=== PATIENT | male | born 1950 | race Caucasian/White ===

== ENCOUNTER 2017-03-24 13:56 | Emergency (ER) | payer OTHER ==
[~2017-03-24] VITALS: Ht 167.6 cm; Wt 112.0 kg
[2017-03-24 14:54] VITALS: BP 200/106
[2017-03-25] MEDS ORDERED: NAPROXEN500 MG PO (23:55)
[2017-03-25] MEDS ORDERED: TRAMADOL HCL50 MG PO (23:55)
[2017-03-25] MEDS ORDERED: AUGMENTIN875 MG PO (23:55)
== END 2017-03-24 14:56 | disposition home or self-care (01) ==
LOC: EME 13:56
DX: S80.11XA Contusion of right lower leg, initial encounter (principal); I10 Essential (primary) hypertension; W22.8XXA Striking against or struck by other objects, initial encounter
CPT/HCPCS: 99281; 99283

== ENCOUNTER 2017-03-25 19:45 | Emergency (ER) | payer OTHER ==
[~2017-03-25] VITALS: Ht 167.6 cm; Wt 112.7 kg
[2017-03-25] MEDS ORDERED: TRAMADOL HCL50 MG PO (23:55)
[2017-03-25] MEDS ORDERED: AUGMENTIN875 MG PO (23:55)
[2017-03-25] MEDS ORDERED: NAPROXEN500 MG PO (23:55)
[2017-03-26 00:11] VITALS: BP 00/00
== END 2017-03-26 00:17 | disposition home or self-care (01) ==
LOC: EME 19:45
DX: L03.115 Cellulitis of right lower limb (principal)
CPT/HCPCS: 73590; 93971; 99281; 99284; J1885

== ENCOUNTER 2017-03-28 11:46 | Emergency (ER) | payer OTHER ==
[~2017-03-28] VITALS: Ht 167.6 cm; Wt 112.0 kg
[~2017-03-28 11:46] MED LIST: AUGMENTIN875 MG PO; NAPROXEN500 MG PO; TRAMADOL HCL50 MG PO
[2017-03-28 13:17] VITALS: BP 168/100
== END 2017-03-28 13:17 | disposition home or self-care (01) ==
LOC: EME 11:46
DX: L03.115 Cellulitis of right lower limb (principal)
CPT/HCPCS: 99281; 99283

== ENCOUNTER 2018-03-17 09:54 | Emergency (ER) | payer OTHER ==
[~2018-03-17] VITALS: Ht 165.1 cm; Wt 105.0 kg
[2018-03-17] MEDS ORDERED: ULTRAM50 MG PO (11:15)
[2018-03-17] MEDS ORDERED: CLINDAMYCIN HC300 MG PO (11:15)
[2018-03-17] MEDS ORDERED: NAPROSYN500 MG PO (11:15)
[2018-03-17 12:23] VITALS: BP 144/83
== END 2018-03-17 12:25 | disposition home or self-care (01) ==
LOC: EME 09:54
DX: S91.301A Unspecified open wound, right foot, initial encounter (principal); X58.XXXA Exposure to other specified factors, initial encounter; I10 Essential (primary) hypertension
CPT/HCPCS: 73630; 99281; 99284